=== PATIENT | male | born 1975 | race Caucasian/White ===

== ENCOUNTER 2018-04-05 19:45 | Emergency (ER) | payer SELFPAY ==
[~2018-04-05] VITALS: Ht 182.9 cm; Wt 195.0 kg
[~2018-04-05 19:45] MED LIST: CYCL10TA2 PO; HYDR-2761 PO; IBUP-1060 PO; IBUP200T77 PO; LIDO700A39 TD; OXYC1TAB15 PO; TIZA4CAP3 PO
[2018-04-05 20:57] LABS: BASO # 0.1 x10^3/uL (0.0-0.2); BASO % 1 % (0-3); EOS # 0.2 x10^3/uL (0.0-0.7); EOS % 2 % (0-3); HEMATOCRIT 45.7 % (39.0-53.0); HEMOGLOBIN 15.3 g/dL (13.0-17.5); LYMPH % 20 % (24-48); MEAN CORPUSCULAR HEMOGLOBIN 28 pg (25-35); MEAN CORPUSCULAR HGB CONC 34 g/dL (31-37); MEAN CORPUSCULAR VOLUME 82 fL (79-100); MONO # 0.5 x10^3/uL (0.0-1.1); MONO % 5 % (0-9); NEUT # 7.3 x10^3uL (1.8-7.7); NEUT % 73 % (31-73); PLATELET COUNT 376 x10^3/uL (140-400); RED BLOOD COUNT 5.56 x10^6/uL (4.30-5.70); RED CELL DISTRIBUTION WIDTH 14.6 % (11.5-14.5); WHITE BLOOD COUNT 10.1 x10^3/uL (4.0-11.0)
[2018-04-05 21:06] LABS: CALCIUM 10.1 mg/dL (8.5-10.1); CREATININE 0.9 mg/dL (0.7-1.3); GFR 91.7; POTASSIUM 3.6 mmol/L (3.5-5.1)
--- NOTE | 2018-04-05 21:12 | PHYS DOC ---
Past Medical History Past Medical History: Arthritis, High Cholesterol, Seizure, Other Additional Past Medical Histor: BLOOD CLOT,Carpal Tunnel,CHRONIC BACK PAIN,PE'S Past Surgical History: Cholecystectomy, Other Additional Past Surgical Histo: MOUTH SURGERY,HERNIA REPAIR Alcohol Use: None Drug Use: None Adult General Chief Complaint Chief Complaint: SHORTNESS OF BREATH HPI HPI 42-year-old male presents to ER for complaints of right lower extremity pain and swelling. Patient also reports he has had shortness of air for the past couple of days which has been gradually worsening. Patient denies chest pain or tightness. Patient reports he felt like he had a fever but denies checking his temperature yesterday. Patient reports 2 months ago he had slipped while running down a hill causing him to strain his right knee. Patient reports since onset of increased swelling, knee pain, and shortness of air he had concerns as he has had previous PE approximately 4 years ago. Patient denies being daily smoker, recent travel, or hormonal therapy. Review of Systems Review of Systems Constitutional: Reports chills and felt feverish Eyes: Denies change in visual acuity, redness, or eye pain [] HENT: Denies nasal congestion or sore throat [] Respiratory: Denies cough. Reports SOA which increases with exertion Cardiovascular: Denies CP/tightness GI: Denies abdominal pain, nausea, vomiting, bloody stools or diarrhea [] : Denies dysuria or hematuria [] Musculoskeletal: Denies back pain. Reports rt knee into rt calf pain with swelling in rt calf/lower leg Integument: Denies rash or skin lesions [] Neurologic: Denies headache, focal weakness or sensory changes [] Endocrine: Denies polyuria or polydipsia [] All other systems were reviewed and found to be within normal limits, except as documented in this note. Current Medications Current Medications Current Medications Medications (Trade) Dose Ordered Sig/Brii Start Time Stop Time Status Last Admin Dose Admin Acetaminophen/ Hydrocodone Bitart (Lortab 5/325) 1 tab 1X ONCE 04/05/18 23:00 04/05/18 23:03 DC 04/05/18 23:12 1 TAB Ibuprofen (Motrin) 600 mg 1X ONCE 04/05/18 23:30 04/05/18 23:31 UNV Info (CONTRAST GIVEN -- Rx MONITORING) 1 each PRN DAILY PRN 1/23/19 21:15 04/07/18 21:14 Iohexol (Omnipaque 350 Mg/ml) 100 ml 1X ONCE 04/05/18 21:15 04/05/18 21:16 DC 04/05/18 21:45 100 ML Allergies Allergies Allergies Coded Allergies Type Severity Reaction Last Updated Verified phenobarbital Allergy Intermediate SEIZURE 02/19/16 Yes Physical Exam Physical Exam Constitutional: Well developed, well nourished, no acute distress, non-toxic appearance. [] HENT: Normocephalic, atraumatic, oropharynx moist, nose normal. [] Eyes: Pupils equal, conjunctiva normal, no discharge. [] Neck: Normal range of motion, no tenderness, supple, no stridor. [] Cardiovascular: Heart rate regular rhythm, no murmur [] Lungs & Thorax: Bilateral breath sounds clear to auscultation- diminished in bases. Resp. equal/nonlabored Skin: Warm, dry, no erythema, no rash. [] Back: No tenderness, full ROM Extremities: Tender to palp. rt anterior/posterior knee with no swelling/ ecchymosis or palp. deformity, rt calf > lt calf and is tender on palp. No skin discoloration in bilat. LEs, 2+ posterior tibial/dorsalis pedis, no cyanosis, no clubbing, ROM intact, no edema. [] Neurologic: Alert and oriented X 3, normal motor function, normal sensory function, no focal deficits noted. [] Psychologic: Affect normal, judgement normal, mood normal. [] Current Patient Data Vital Signs Vital Signs Date Time Temp Pulse Resp B/P (MAP) Pulse Ox O2 Delivery O2 Flow Rate FiO2 04/05/18 20:30 84 24 160/87 (111) 95 Room Air 04/05/18 19:55 98.6 98.6 Lab Values Laboratory Tests Test 04/05/18 20:05 White Blood Count 10.1 x10^3/uL (4.0-11.0) Red Blood Count 5.56 x10^6/uL (4.30-5.70) Hemoglobin 15.3 g/dL (13.0-17.5) Hematocrit 45.7 % (39.0-53.0) Mean Corpuscular Volume 82 fL (79-100) Mean Corpuscular Hemoglobin 28 pg (25-35) Mean Corpuscular Hemoglobin Concent 34 g/dL (31-37) Red Cell Distribution Width 14.6 % (11.5-14.5) H Platelet Count 376 x10^3/uL (140-400) Neutrophils (%) (Auto) 73 % (31-73) Lymphocytes (%) (Auto) 20 % (24-48) L Monocytes (%) (Auto) 5 % (0-9) Eosinophils (%) (Auto) 2 % (0-3) Basophils (%) (Auto) 1 % (0-3) Neutrophils # (Auto) 7.3 x10^3uL (1.8-7.7) Lymphocytes # (Auto) 2.0 x10^3/uL (1.0-4.8) Monocytes # (Auto) 0.5 x10^3/uL (0.0-1.1) Eosinophils # (Auto) 0.2 x10^3/uL (0.0-0.7) Basophils # (Auto) 0.1 x10^3/uL (0.0-0.2) D-Dimer (Dali) 0.62 ug/mlFEU (0.00-0.50) H Sodium Level 140 mmol/L (136-145) Potassium Level 3.6 mmol/L (3.5-5.1) Chloride Level 98 mmol/L (98-107) Carbon Dioxide Level 33 mmol/L (21-32) H Anion Gap 9 (6-14) Blood Urea Nitrogen 12 mg/dL (8-26) Creatinine 0.9 mg/dL (0.7-1.3) Estimated GFR (Cockcroft-Gault) 91.7 BUN/Creatinine Ratio 13 (6-20) Glucose Level 119 mg/dL (70-99) H Calcium Level 10.1 mg/dL (8.5-10.1) Total Bilirubin 0.6 mg/dL (0.2-1.0) Aspartate Amino Transferase (AST) 21 U/L (15-37) Alanine Aminotransferase (ALT) 29 U/L (16-63) Alkaline Phosphatase 127 U/L (46-116) H Troponin I Quantitative < 0.017 ng/mL (0.000-0.055) ND-Vvi-U-Type Natriuretic Peptide 8 pg/mL (0-124) Total Protein 8.3 g/dL (6.4-8.2) H Albumin 3.5 g/dL (3.4-5.0) Albumin/Globulin Ratio 0.7 (1.0-1.7) L Laboratory Tests 04/05/18 20:05 Laboratory Tests 04/05/18 20:05 EKG EKG EKG obtained 04/05/18 at [address] Barfield Sinus rhythm Incomplete Rt BBB Rate 85 No STEMI Radiology/Procedures Radiology/Procedures PROCEDURE: CT ANGIOGRAPHY CHEST Examination: CT ANGIOGRAPHY CHEST History: soa; hx pe; Omni 350, 100ml; pt 430lbs Comparison/Correlation: None Findings: Axial images of chest were obtained following IV contrast according to pulmonary arteriography protocol. Exam is limited due to respiratory motion, patient body habitus and suboptimal opacification of the pulmonary arterial vasculature. This exam is nondiagnostic for pulmonary arterial thromboembolic disease and other arteriovascular evaluation. Thoracic aortic morphology is grossly unremarkable. No enlarged thoracic lymph nodes. No infiltrates or pleural effusion. No pericardial effusion. Cholecystectomy noted. Impression: Nondiagnostic exam for pulmonary arterial thromboembolic disease evaluation. No infiltrate. Electronically signed by: Martín Rodriguez MD (04/05/2018 10:19 PM) [facility] DICTATED and SIGNED BY: MARTÍN RODRIGUEZ MD DATE: 04/05/182212 PROCEDURE: VENOUS LOWER EXTREMITY RIGHT Examination: VENOUS LOWER EXTREMITY RIGHT History: RT LEG PAIN AFTER INJURY, SOA, HX OF PE, MORBID OBESITY

NO EVIDENCE OF DVT Comparison/Correlation: None Findings: Right lower extremity venous duplex ultrasound exam was performed. Color Doppler, spectral Doppler, and grayscale imaging performed. The right common femoral vein, superficial femoral vein, popliteal vein, posterior tibial vein, greater saphenous, and peroneal veins are unremarkable. No thrombus identified. Normal compressibility and phasicity. Impression: No right lower extremity DVT. Electronically signed by: Martín Rodriguez MD (04/05/2018 10:13 PM) [facility] DICTATED and SIGNED BY: MARTÍN RODRIGUEZ MD DATE: 04/05/182210 Course & Med Decision Making Course & Med Decision Making Pertinent Labs and Imaging studies reviewed. (See chart for details) 2310: Test results were discussed with patient and his . CTA chest was negative for infiltrate or effusions. Report noted that CT was "Nondiagnostic exam for pulmonary arterial thromboembolic disease evaluation". This was discussed with patient and his as a d-dimer had been added to patient's lab tests and came back elevated at 0.62. With patient's previous PE history and nondiagnostic exam was CT discussed need for VQ scan to further rule out PE. Patient is agreeable with this plan. Other labs were unremarkable. EKG with no acute ST elevation or STEMI and troponin was normal limits at <0.017. At this time patient is sitting up in chair at bedside in no visible distress with equal nonlabored respirations. Patient is denying shortness of air or chest pain at this time. Discussed prolonged ER stay due to V/Q order and both patient and his are agreeable with this plan. Right knee x-ray was reviewed by Dr. Barfield with no obvious displaced fractures or dislocation-this was discussed with patient and his with radiology read pending. Discussed plans for Kvng wrap to be applied to right knee and patient to have follow-up with orthopedic doctor for further care and reevaluation if symptoms persist. Patient has had increased pain of right knee pain following imaging an ultrasound so dose of ibuprofen and [place] will be provided while V/Q is pending. He remains neuro and vascular intact in bilateral lower extremities. Pt's case and plan of care was discussed with Dr. Barfield who will assume care for pending VQ and disposition. Dragon Disclaimer Dragon Disclaimer This electronic medical record was generated, in whole or in part, using a voice recognition dictation system. Departure Departure Referrals: UNKNOWN PCP NAME (PCP) FORTINO BIRD APRN Apr 05, 2018 21:12
[2018-04-05 21:13] LABS: ALBUMIN 3.5 g/dL (3.4-5.0); ALBUMIN/GLOBULIN RATIO 0.7 (1.0-1.7); TOTAL BILIRUBIN 0.6 mg/dL (0.2-1.0); TOTAL PROTEIN 8.3 g/dL (6.4-8.2)
[2018-04-05] MEDS ORDERED: CONTRAST GIVEN. MC PRN (21:15)
[2018-04-05] MEDS ORDERED: IOHEXOL 350 MG/ML 100 ML VIAL. IV ONE (21:15)
--- NOTE | 2018-04-05 22:17 | RAD ---
Examination: VENOUS LOWER EXTREMITY RIGHT History: RT LEG PAIN AFTER INJURY, SOA, HX OF PE, MORBID OBESITY

NO EVIDENCE OF DVT Comparison/Correlation: None Findings: Right lower extremity venous duplex ultrasound exam was performed. Color Doppler, spectral Doppler, and grayscale imaging performed. The right common femoral vein, superficial femoral vein, popliteal vein, posterior tibial vein, greater saphenous, and peroneal veins are unremarkable. No thrombus identified. Normal compressibility and phasicity. Impression: No right lower extremity DVT. Electronically signed by: Martín Flannery MD (04/05/2018 10:13 PM) [facility]
--- NOTE | 2018-04-05 22:24 | RAD ---
Examination: CT ANGIOGRAPHY CHEST History: soa; hx pe; Omni 350, 100ml; pt 430lbs Comparison/Correlation: None Findings: Axial images of chest were obtained following IV contrast according to pulmonary arteriography protocol. Exam is limited due to respiratory motion, patient body habitus and suboptimal opacification of the pulmonary arterial vasculature. This exam is nondiagnostic for pulmonary arterial thromboembolic disease and other arteriovascular evaluation. Thoracic aortic morphology is grossly unremarkable. No enlarged thoracic lymph nodes. No infiltrates or pleural effusion. No pericardial effusion. Cholecystectomy noted. Impression: Nondiagnostic exam for pulmonary arterial thromboembolic disease evaluation. No infiltrate. Electronically signed by: Martín Flannery MD (04/05/2018 10:19 PM) [facility]
[2018-04-05] MEDS ORDERED: HYDROcodone/APAP 5/325MG 1 TAB TABLET PO ONE (23:00)
[2018-04-05] MEDS ORDERED: IBUPROFEN 600 MG TABLET. PO ONE (23:45)
--- NOTE | 2018-04-06 00:19 | RAD ---
Examination: KNEE RIGHT 3V History: Injury, twisted and fell while working out Comparison/Correlation: None Findings: 3 images of the right knee were obtained. Joint spaces are unremarkable. Mild spurring with patella. Mild patellofemoral compartment degenerative change suggested. Small joint effusion present. No acute fracture or bony destruction. Impression: No acute process. No significant degenerative change for the patient's age. Electronically signed by: Martín Flannery MD (04/06/2018 12:14 AM) [facility]
--- NOTE | 2018-04-06 01:35 | RAD ---
Examination: Perfusion scan of the lungs HISTORY: History of shortness of breath for one week COMPARISON: None available. Only 4 views of the perfusion images of the lung were performed after administration of 5 mCi of technetium 99m MAA. FINDINGS: Examination is very limited due to patient body habitus as the camera could not rotate around the patient due to patient body habitus. Grossly no obvious segmental perfusion defect visualized. IMPRESSION: No obvious segmental perfusion defect visualized to suggest pulmonary embolism however examination is very limited due to patient body habitus. Electronically signed by: Aneesh Mack MD (04/06/2018 1:31 AM) [facility]
[2018-04-06 02:00] VITALS: BP 139/81
[2018-04-06] MEDS ORDERED: HYDR-3164 PO (02:00)
--- NOTE | 2018-04-06 06:23 | EKG ---
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
== END 2018-04-06 02:08 | disposition home or self-care (01) ==
LOC: ER 19:45
DX: M79.604 Pain in right leg (principal); R06.02 Shortness of breath; R22.41 Localized swelling, mass and lump, right lower limb; M19.90 Unspecified osteoarthritis, unspecified site; E78.00 Pure hypercholesterolemia, unspecified; G89.29 Other chronic pain; M54.89 Other dorsalgia; Z90.49 Acquired absence of other specified parts of digestive tract; Z86.711 Personal history of pulmonary embolism; Z88.8 Allergy status to other drugs, medicaments and biological substances
CPT/HCPCS: 36415; 71275; 73562; 78582; 80053; 83880; 84484; 85025; 85379; 93005; 93971; 99284; A9540; A9558; Q9967; 96374

== ENCOUNTER 2018-06-13 22:31 | Inpatient (IN) | payer SELFPAY ==
[~2018-06-13] VITALS: Ht 182.9 cm; Wt 217.8 kg
[~2018-06-13 22:31] MED LIST changes: +HYDR-3164 PO
--- NOTE | 2018-06-13 23:34 | PHYS DOC ---
Past Medical History Past Medical History: Arthritis, High Cholesterol, Seizure, Other Additional Past Medical Histor: BLOOD CLOT,Carpal Tunnel,CHRONIC BACK PAIN,PE'S Past Surgical History: Cholecystectomy, Other Additional Past Surgical Histo: MOUTH SURGERY,HERNIA REPAIR Smoking: Quit Greater Than 1 Year Alcohol Use: None Drug Use: None Adult General Chief Complaint Chief Complaint: SHORTNESS OF BREATH HPI HPI Patient is a 43 year old male who presents with shortness of breath for the past five days. Patient states that he has been ill with a cough slightly productive of green sputum for the past two weeks. Patient states that the shortness of breath has been getting progressively worse. Patient states that the shortness of breath is worse on exertion and with coughing. Patient reports relief when sitting down and relaxing. Patient states that he checked his oxygen saturation with a pulse oximetry today and he was averaging in the low 80s prompting him to come to the ED for an evaluation. Patient does have a history of five multi-bilateral pulmonary emboli about 5 years ago. Patient states that his current symptoms feel different than the symptoms he experienced with his prior pulmonary emboli. Review of Systems Review of Systems Constitutional: Denies fever or chills. Eyes: Denies change in visual acuity, or eye pain. HENT: Denies nasal congestion or sore throat. Respiratory: Reports cough and shortness of breath. Cardiovascular: Denies chest pain or palpitations. GI: Reports epigastric pain and diarrhea 5 days ago. : Denies dysuria or hematuria . Musculoskeletal: Denies back pain or joint pain. Integument: Denies rash or skin lesions. Neurologic: Denies focal weakness or sensory changes. Complete systems were reviewed and found to be within normal limits, except as documented in this note. Current Medications Current Medications Current Medications Medications (Trade) Dose Ordered Sig/Brii Start Time Stop Time Status Last Admin Dose Admin Albuterol/ Ipratropium (Duoneb) 3 ml 1X ONCE 06/13/18 23:45 06/13/18 23:46 DC 06/13/18 23:36 3 ML Enoxaparin Sodium (Lovenox 100mg Syringe) 200 mg 1X ONCE 06/14/18 02:30 06/14/18 02:31 DC 06/14/18 02:54 200 MG Info (CONTRAST GIVEN -- Rx MONITORING) 1 each PRN DAILY PRN 06/14/18 01:00 06/16/18 00:59 Iohexol (Omnipaque 350 Mg/ml) 100 ml 1X ONCE 06/14/18 01:30 06/14/18 01:31 DC 06/14/18 01:11 100 ML Sodium Chloride 1,000 ml @ 1,000 mls/hr 1X ONCE 06/13/18 23:45 06/14/18 00:44 DC 06/13/18 23:55 1,000 MLS/HR Allergies Allergies Allergies Coded Allergies Type Severity Reaction Last Updated Verified phenobarbital Allergy Intermediate SEIZURE 02/19/16 Yes Physical Exam Physical Exam Constitutional: Well developed, well nourished, non-toxic appearance. HENT: Normocephalic, atraumatic, oropharynx moist. No pharyngeal erythema or exudate. Eyes: PERRL, conjunctiva without erythema. Neck: Normal range of motion, no tenderness, supple. Cardiovascular:Heart rate regular rhythm, no murmur. Lungs & Thorax: Diffuse scattered wheezes. Nasal cannula in place. Abdomen: Obese. Soft, no tenderness on palpation. Skin: Warm, dry, no rash. Back: No tenderness, no CVA tenderness. Extremities: No tenderness, ROM intact. Neurologic: Alert and oriented X 3, normal motor function, normal sensory function, no focal deficits noted. Psychologic: Affect normal. Speech normal. Current Patient Data Vital Signs Vital Signs Date Time Temp Pulse Resp B/P (MAP) Pulse Ox O2 Delivery O2 Flow Rate FiO2 06/14/18 00:52 85 22 127/71 (89) 97 06/13/18 23:36 Nasal Cannula 2.5 06/13/18 22:40 98.1 98.1 Lab Values Laboratory Tests Test 06/13/18 23:52 White Blood Count 10.2 x10^3/uL (4.0-11.0) Red Blood Count 5.33 x10^6/uL (4.30-5.70) Hemoglobin 14.7 g/dL (13.0-17.5) Hematocrit 43.7 % (39.0-53.0) Mean Corpuscular Volume 82 fL (79-100) Mean Corpuscular Hemoglobin 28 pg (25-35) Mean Corpuscular Hemoglobin Concent 34 g/dL (31-37) Red Cell Distribution Width 15.6 % (11.5-14.5) H Platelet Count 284 x10^3/uL (140-400) Neutrophils (%) (Auto) 68 % (31-73) Lymphocytes (%) (Auto) 23 % (24-48) L Monocytes (%) (Auto) 6 % (0-9) Eosinophils (%) (Auto) 2 % (0-3) Basophils (%) (Auto) 1 % (0-3) Neutrophils # (Auto) 6.9 x10^3uL (1.8-7.7) Lymphocytes # (Auto) 2.4 x10^3/uL (1.0-4.8) Monocytes # (Auto) 0.6 x10^3/uL (0.0-1.1) Eosinophils # (Auto) 0.2 x10^3/uL (0.0-0.7) Basophils # (Auto) 0.1 x10^3/uL (0.0-0.2) D-Dimer (Dali) 1.99 ug/mlFEU (0.00-0.50) H Sodium Level 141 mmol/L (136-145) Potassium Level 3.8 mmol/L (3.5-5.1) Chloride Level 100 mmol/L (98-107) Carbon Dioxide Level 28 mmol/L (21-32) Anion Gap 13 (6-14) Blood Urea Nitrogen 12 mg/dL (8-26) Creatinine 1.1 mg/dL (0.7-1.3) Estimated GFR (Cockcroft-Gault) 72.4 BUN/Creatinine Ratio 11 (6-20) Glucose Level 126 mg/dL (70-99) H Calcium Level 9.0 mg/dL (8.5-10.1) Magnesium Level 2.0 mg/dL (1.8-2.4) Total Bilirubin 0.5 mg/dL (0.2-1.0) Aspartate Amino Transferase (AST) 22 U/L (15-37) Alanine Aminotransferase (ALT) 29 U/L (16-63) Alkaline Phosphatase 113 U/L (46-116) Creatine Kinase 120 U/L (39-308) Creatine Kinase MB (Mass) < 0.5 ng/mL (0.0-3.6) Creatine Kinase MB Relative Index % (0-4) Troponin I Quantitative < 0.017 ng/mL (0.000-0.055) BI-Wsc-W-Type Natriuretic Peptide 53 pg/mL (0-124) Total Protein 7.5 g/dL (6.4-8.2) Albumin 3.1 g/dL (3.4-5.0) L Albumin/Globulin Ratio 0.7 (1.0-1.7) L Influenza Type A Antigen Negative (NEGATIVE) Influenza Type B Antigen Negative (NEGATIVE) Laboratory Tests 06/13/18 23:52 Laboratory Tests 06/13/18 23:52 EKG EKG @2344 NSR at 91bpm, NO ST elevation Radiology/Procedures Radiology/Procedures PROCEDURE: CT ANGIOGRAPHY CHEST CTA Chest with contrast: Clinical History: sob, low sats; Omni 350, 100ml Shortness of breath. Axial helical images of the chest were obtained after the administration of 100 cc of IV Omni 300 and timed appropriately for a pulmonary arterial study. Conventional axial reconstruction was performed in addition to coronal, sagittal and bilateral oblique MIP (maximum intensity projection). This study was ordered to detect possible pulmonary embolism. There is filling defects within the distal right main pulmonary artery is interdigitating into all of the segmental and multiple subsegmental pulmonary arteries on the right. There is thrombus and multiple segmental and subsegmental pulmonary arteries on the left. The more peripheral subsegmental pulmonary arteries are not well opacified limiting our sensitivity for small peripheral pulmonary emboli. The lungs and pleural margins are clear. There is no mediastinal or hilar lymphadenopathy. The thoracic aorta appears normal. Impression: 1. Multiple bilateral pulmonary emboli. 2. Moderate clot burden. PQRS Compliance Statement: One or more of the following individualized dose reduction techniques were utilized for this examination: 1. Automated exposure control 2. Adjustment of the mA and/or kV according to patient size 3. Use of iterative reconstruction technique Electronically signed by: Devin Carmona III, MD (06/14/2018 1:34 AM) [facility] Course & Med Decision Making Course & Med Decision Making Pertinent Labs and Imaging studies reviewed. (See chart for details) Patient is a 43 year old male who presents for evaluation of shortness of breath. Patient placed on 2L supplemental O2 via nasal cannula and pulse oximetry noted to be 96%. Patient treated with Duoneb with improvement. Due to history of multiple pulmonary embolism's D-dimer ordered. Dragon Disclaimer Dragon Disclaimer This electronic medical record was generated, in whole or in part, using a voice recognition dictation system. Departure Departure Impression: Primary Impression: Bilateral pulmonary embolism Additional Impression: Hypoxia Disposition: 09 ADMITTED INPATIENT Admitting Physician: Other (Lana) Condition: GUARDED Referrals: UNKNOWN PCP NAME (PCP) Critical Care Time Critical care time was 30 minutes which includes time at bedside, spent in discussion of patient's care with specialists and/or family members, with interpretation of laboratory and/or radiological studies and is exclusive of procedures. Problem Qualifiers ERICKA HOUSER DO Jun 13, 2018 23:34
[2018-06-13] MEDS ORDERED: IV NORMAL SALINE 1000ML BAG 1,000 ML IV ONE (23:45)
[2018-06-13] MEDS ORDERED: IPRATRPIUM/ALBUTEROL 0.5/2.5MG 3 ML NEBU. NEB ONE (23:45)
[2018-06-14 00:10] LABS: BASO # 0.1 x10^3/uL (0.0-0.2); BASO % 1 % (0-3); EOS # 0.2 x10^3/uL (0.0-0.7); EOS % 2 % (0-3); HEMATOCRIT 43.7 % (39.0-53.0); HEMOGLOBIN 14.7 g/dL (13.0-17.5); LYMPH # 2.4 x10^3/uL (1.0-4.8); LYMPH % 23 % (24-48); MEAN CORPUSCULAR HEMOGLOBIN 28 pg (25-35); MEAN CORPUSCULAR HGB CONC 34 g/dL (31-37); MEAN CORPUSCULAR VOLUME 82 fL (79-100); MONO # 0.6 x10^3/uL (0.0-1.1); MONO % 6 % (0-9); NEUT # 6.9 x10^3uL (1.8-7.7); NEUT % 68 % (31-73); PLATELET COUNT 284 x10^3/uL (140-400); RED BLOOD COUNT 5.33 x10^6/uL (4.30-5.70); RED CELL DISTRIBUTION WIDTH 15.6 % (11.5-14.5); WHITE BLOOD COUNT 10.2 x10^3/uL (4.0-11.0)
[2018-06-14 00:13] LABS: CREATININE 1.1 mg/dL (0.7-1.3); GFR 72.4; POTASSIUM 3.8 mmol/L (3.5-5.1)
[2018-06-14 00:19] LABS: ALBUMIN 3.1 g/dL (3.4-5.0); ALBUMIN/GLOBULIN RATIO 0.7 (1.0-1.7); TOTAL BILIRUBIN 0.5 mg/dL (0.2-1.0); TOTAL PROTEIN 7.5 g/dL (6.4-8.2)
[2018-06-14 00:26] LABS: INFLUENZA A PATIENT NEGATIVE (NEGATIVE); INFLUENZA B PATIENT NEGATIVE (NEGATIVE)
[2018-06-14 00:36] LABS: CREATINE KINASE 120 U/L (39-308)
[2018-06-14] MEDS ORDERED: CONTRAST GIVEN. MC PRN (01:00)
[2018-06-14] MEDS ORDERED: IOHEXOL 350 MG/ML 100 ML VIAL. IV ONE (01:30)
--- NOTE | 2018-06-14 01:37 | RAD ---
CTA Chest with contrast: Clinical History: sob, low sats; Omni 350, 100ml Shortness of breath. Axial helical images of the chest were obtained after the administration of 100 cc of IV Omni 300 and timed appropriately for a pulmonary arterial study. Conventional axial reconstruction was performed in addition to coronal, sagittal and bilateral oblique MIP (maximum intensity projection). This study was ordered to detect possible pulmonary embolism. There is filling defects within the distal right main pulmonary artery is interdigitating into all of the segmental and multiple subsegmental pulmonary arteries on the right. There is thrombus and multiple segmental and subsegmental pulmonary arteries on the left. The more peripheral subsegmental pulmonary arteries are not well opacified limiting our sensitivity for small peripheral pulmonary emboli. The lungs and pleural margins are clear. There is no mediastinal or hilar lymphadenopathy. The thoracic aorta appears normal. Impression: 1. Multiple bilateral pulmonary emboli. 2. Moderate clot burden. PQRS Compliance Statement: One or more of the following individualized dose reduction techniques were utilized for this examination: 1. Automated exposure control 2. Adjustment of the mA and/or kV according to patient size 3. Use of iterative reconstruction technique Electronically signed by: Devni Carmona III, MD (06/14/2018 1:34 AM) [facility]
[2018-06-14] MEDS ORDERED: ONDANSETRON PF 4 MG/2 ML VIAL. IV PRN (02:45)
[2018-06-14] MEDS ORDERED: fentaNYL PF VIAL 100 MCG/2 ML VIAL IV PRN (02:45)
[2018-06-14 04:20] VITALS: BP 154/81
[2018-06-14 07:00] VITALS: BP 138/75
--- NOTE | 2018-06-14 07:51 | EKG ---
[facility] [address] [place] [address] Test Date: 2018-06-13 Test Time: 23:44:00 Pat Name: SAFIA PHILLIPS Department: Room: 209 1 Gender: M Director Of Vital Statistics: : 1975 Requested By: ERICKA HOUSER Order Number: [id number] Reading MD: Adrien Lacy MD Measurements Intervals Mcdonald Rate: 90 P: 23 ID: [id number] QRS: 20 QRSD: 94 T: 47 QT: 382 QTc: 471 Interpretive Statements SINUS RHYTHM NON-SPECIFIC ST/T CHANGES Electronically Signed On 06-15-2018 9:34:25 CDT by Adrien Lacy MD
[2018-06-14 11:00] VITALS: BP 135/76
[2018-06-14] MEDS ORDERED: PERFLUTREN PROTEIN-A MICROSPHR 0.22 MG/ML 3 ML VIAL. IV ONE (12:19)
[2018-06-14] MEDS ORDERED: PERFLUTREN PROTEIN-A MICROSPHR 0.22 MG/ML 3 ML VIAL. IV PRN (12:30)
--- NOTE | 2018-06-14 13:03 | NUR ---
SS following for discharge planning. SS reviewed pt chart. Pt is self pay. Pt is from home with spouse and is currently requiring oxygen. No discharge needs noted at this time. SS will continue to follow for pending discharge needs. [facility] to follow for self pay status.
[2018-06-14] MEDS ORDERED: HEPARIN for IV BOLUS 10,000 UNIT/10 ML VIAL. IV PRN (14:00)
--- NOTE | 2018-06-14 14:32 | CARD ---
MR#: [id number] Date of Study: 06/14/2018 Ordering Physician: LOCO OCONNOR, Referring Physician: LOCO OCONNOR Tech: Amy Dior OTIS APPROVED REPORT EXAM: Two-dimensional and M-mode echocardiogram with Doppler, color Doppler with contrast. Other Information Quality : PoorHR: 83bpm Rhythm : Other INDICATION PE Echo Enhancing Agent Indication: Endocardial border delineation Agent/Amount Used: Optison 1mL RISK FACTORS Obesity 2D DIMENSIONS RVDd3.7 (2.9-3.5cm)Left Atrium(2D)3.2 (1.6-4.0cm) IVSd1.1 (0.7-1.1cm)Aortic Root(2D)3.6 (2.0-3.7cm) LVDd6.3 (3.9-5.9cm)LVOT Diameter2.8 (1.8-2.4cm) PWd1.1 (0.7-1.1cm)LVDs4.4 (2.5-4.0cm) FS (%) 30.8 %SV117.4 ml LVEF(%)57.3 (>50%) Mitral Valve MV E Xnvefngt05.2cm/sMV E Peak Gr.3mmHg MV DECEL [id number] A Jyuaoxfe85.6cm/s MV E Mean Gr.2mmHgE/A Ratio0.8 MV A [id number] Tricuspid Valve TR P. Vdjgdggm097nn/sRAP [id number] TR Peak Gr.[id number] LEFT VENTRICLE Technically very difficult study. The left ventricle is normal size. There is normal left ventricular wall thickness. The left ventricular systolic function is normal and the ejection fraction is within normal range. Left ventricular ejection fraction is estimated at 50-55%. There is normal LV segmenta l wall motion. Transmitral Doppler flow pattern is abnormal. RIGHT VENTRICLE The right ventricle is mildly dilated. Cannot assess right ventricular thickness. Cannot assess right ventricular systolic function. ATRIA The left atrium size is normal. The right atrium size is normal. The interatrial septum is intact wit h no evidence for an atrial septal defect or patent foramen ovale as noted on 2-D or Doppler imaging. AORTIC VALVE The aortic valve is not well visualized. MITRAL VALVE The mitral valve is normal in structure and function. There is no evidence of mitral valve prolapse. There is no mitral valve stenosis. Doppler and Color Flow revealed mild mitral valve regurgitation. TRICUSPID VALVE The tricuspid valve is not well visualized. Doppler and color-flow analysis was performed but not kasi ar. With contrast the PA pressure was estimated at 50 mmHg. PULMONIC VALVE The pulmonic valve is not well visualized. GREAT VESSELS The aortic root is normal in size. The ascending aorta is normal in size. The IVC was not visualized. PERICARDIAL EFFUSION There is no evidence of significant pericardial effusion. Critical Notification Critical Value: No <Conclusion> Technically very difficult study. The left ventricle is normal size. The left ventricular systolic function is normal and the ejection fraction is within normal range. Left ventricular ejection fraction is estimated at 50-55%. The right ventricle is mildly dilated. The aortic valve is not well visualized. Doppler and Color Flow revealed mild mitral valve regurgitation. Doppler and color-flow analysis of the tricuspid valve -was performed but not clear. With contrast the PA pressure was estimated at 50 mmHg. Signed by : Cristi Elaine MD Electronically Approved : 06/14/2018 14:31:44
[2018-06-14] MEDS: HEPARIN 25,000UTS/500ML PREMIX 500 ML IV PRN (14:34)
[2018-06-14] MEDS: ANTI-COAG MONITOR BY PHARMACY. MC PRN (14:56)
--- NOTE | 2018-06-14 14:57 | NUR ---
Pharmacy Warfarin Dosing Note S:Pharmacy consulted to assist with anticoagulation therapy started 06/14/18 with target INR: 2 -3 O:SAFIA PHILLIPS is a 43 year old M with Bilateral pulmonary embolism LABS: Last INR: 1.1 Last HGB: 14.7 Last HCT: 43.7 Last PLT: 284 Previous Regimen: NA Vitamin K given: N Drug Interaction Changes: Same Interacting Drug A:INR of 1.1 is below desired range. Target range for this patient is: 2 -3 P: Warfarin dose: 10 mg Today at 1600 Bridge Therapy: Heparin Therapeutic CONT Next INR due 06/15/18 Pharmacy anticoagulation service will continue to follow. TEREZA BUTTERFIELD, [facility], 06/14/18 [id number]
[2018-06-14 15:00] VITALS: BP 165/86
[2018-06-14] MEDS ORDERED: WARFARIN 5 MG TABLET. PO ONE (16:00)
--- NOTE | 2018-06-14 18:49 | PDOC1 ---
History and Physical Date of Admission Date of Admission 06/14/2018 Identification/Chief Complaint Chief Complaint I couldnt breath Source Source: Chart review, Patient History of Present Illness History of Present Illness Patient is a 43 year old male with past medical hsitory fo PE in the past who was in his usual state of health until 3 days prior to his admission when he started compalining of shortness of breath more than ususal. the patient denies sick contacts, no chest pain, no palpitations, no recent viral infections nor upper respiratory tract infections. no cough or sputum production was reported. His friend who is a juvenile counselor brought a pulse oxymeter and his level was 78% reason why he decided to come to the ED for evaluation he was fund to have a PE on imaging studies. He is being admitted for treatment. Past Medical History Pulmonary: Pulmonary embolus Past Surgical History Past Surgical History: No pertinent history Family History Family History: High Cholestrol Family History: Parent Social History Smoke: No ALCOHOL: none Drugs: None Current Medications Current Medications Current Medications Medications (Trade) Dose Ordered Sig/Brii Start Time Stop Time Status Last Admin Dose Admin Albuterol/ Ipratropium (Duoneb) 3 ml 1X ONCE 06/13/18 23:45 06/13/18 23:46 DC 06/13/18 23:36 3 ML Enoxaparin Sodium (Lovenox 100mg Syringe) 200 mg 1X ONCE 06/14/18 02:30 06/14/18 02:31 DC 06/14/18 02:54 200 MG Enoxaparin Sodium (Lovenox Per Pharmacy Treatment Dosing) 1 each PRN DAILY PRN 06/14/18 10:15 06/14/18 10:49 DC Fentanyl Citrate (Fentanyl 2ml Vial) 50 mcg PRN Q2HRS PRN 06/14/18 02:45 Heparin Sodium (Porcine) (Heparin Sodium) 3,250 unit PRN Q6HRS PRN 06/14/18 14:00 Heparin Sodium/ Dextrose 500 ml @ 0 mls/hr CONT PRN 06/14/18 14:00 06/14/18 14:34 20 MLS/HR Info (Anti-Coagulation Monitoring By Pharmacy) 1 each PRN DAILY PRN 06/14/18 15:00 06/14/18 14:56 1 EACH Info (CONTRAST GIVEN -- Rx MONITORING) 1 each PRN DAILY PRN 06/14/18 01:00 4/5/19 00:59 Iohexol (Omnipaque 350 Mg/ml) 100 ml 1X ONCE 06/14/18 01:30 06/14/18 01:31 DC 06/14/18 01:11 100 ML Ondansetron HCl (Zofran) 4 mg PRN Q8HRS PRN 06/14/18 02:45 06/15/18 02:44 Perflutren Protein Type A Microsphe (Optison) 0.66 mg STK-MED ONCE 06/14/18 12:19 06/14/18 12:20 DC Sodium Chloride 1,000 ml @ 1,000 mls/hr 1X ONCE 06/13/18 23:45 06/14/18 00:44 DC 06/13/18 23:55 1,000 MLS/HR Warfarin Sodium (Coumadin Per Pharmacy) 1 each PRN DAILY PRN 06/14/18 10:15 06/14/18 14:55 1 EACH Warfarin Sodium (Coumadin) 10 mg 1X WARF ONCE 06/14/18 16:00 06/14/18 16:01 DC 06/14/18 16:58 10 MG Allergies Allergies Allergies Coded Allergies Type Severity Reaction Last Updated Verified phenobarbital Allergy Intermediate SEIZURE 02/19/16 Yes ROS Review of System CONSTITUTIONAL: No fever or chills EYES: No recent changes SKIN: No rash or itching CARDIOVASCULAR: No chest pain, syncope, palpitations, or edema RESPIRATORY: No SOB or cough GASTROINTESTINAL: No nausea, vomiting or abdominal pain NEUROLOGICAL: No headaches or weakness ENDOCRINE: No cold or heat intolerance GENITOURINARY: No urgency or frequency of urination MUSCULOSKELETAL: No back pain or joint pain LYMPHATICS: No enlarged lymph nodes PSYCHIATRIC: No anxiety or depression Physical Exam Physical Exam GEN.: No apparent distress. Alert and oriented. HEENT: Head is normocephalic, atraumatic NECK: Supple. LUNGS: Clear to auscultation. HEART: RRR, S1, S2 present. Peripheral pulses intact ABDOMEN: Soft, nontender. Positive bowel sounds. EXTREMITIES: Without any cyanosis. NEUROLOGIC: Normal speech, normal tone PSYCHIATRIC: Normal affect, normal mood. SKIN: No ulcerations Vitals Vitals Vital Signs Date Time Temp Pulse Resp B/P (MAP) Pulse Ox O2 Delivery O2 Flow Rate FiO2 06/14/18 15:00 97.9 89 20 165/86 (112) 97 Room Air 97.9 06/14/18 08:05 2.0 Labs Labs Laboratory Tests Test 06/13/18 23:52 06/14/18 05:30 06/14/18 08:35 White Blood Count 10.2 x10^3/uL (4.0-11.0) Red Blood Count 5.33 x10^6/uL (4.30-5.70) Hemoglobin 14.7 g/dL (13.0-17.5) Hematocrit 43.7 % (39.0-53.0) Mean Corpuscular Volume 82 fL (79-100) Mean Corpuscular Hemoglobin 28 pg (25-35) Mean Corpuscular Hemoglobin Concent 34 g/dL (31-37) Red Cell Distribution Width 15.6 % (11.5-14.5) Platelet Count 284 x10^3/uL (140-400) Neutrophils (%) (Auto) 68 % (31-73) Lymphocytes (%) (Auto) 23 % (24-48) Monocytes (%) (Auto) 6 % (0-9) Eosinophils (%) (Auto) 2 % (0-3) Basophils (%) (Auto) 1 % (0-3) Neutrophils # (Auto) 6.9 x10^3uL (1.8-7.7) Lymphocytes # (Auto) 2.4 x10^3/uL (1.0-4.8) Monocytes # (Auto) 0.6 x10^3/uL (0.0-1.1) Eosinophils # (Auto) 0.2 x10^3/uL (0.0-0.7) Basophils # (Auto) 0.1 x10^3/uL (0.0-0.2) D-Dimer (Dali) 1.99 ug/mlFEU (0.00-0.50) Sodium Level 141 mmol/L (136-145) Potassium Level 3.8 mmol/L (3.5-5.1) Chloride Level 100 mmol/L (98-107) Carbon Dioxide Level 28 mmol/L (21-32) Anion Gap 13 (6-14) Blood Urea Nitrogen 12 mg/dL (8-26) Creatinine 1.1 mg/dL (0.7-1.3) Estimated GFR (Cockcroft-Gault) 72.4 BUN/Creatinine Ratio 11 (6-20) Glucose Level 126 mg/dL (70-99) Calcium Level 9.0 mg/dL (8.5-10.1) Magnesium Level 2.0 mg/dL (1.8-2.4) Total Bilirubin 0.5 mg/dL (0.2-1.0) Aspartate Amino Transf (AST/SGOT) 22 U/L (15-37) Alanine Aminotransferase (ALT/SGPT) 29 U/L (16-63) Alkaline Phosphatase 113 U/L (46-116) Creatine Kinase 120 U/L (39-308) Creatine Kinase MB (Mass) < 0.5 ng/mL (0.0-3.6) Creatine Kinase MB Relative Index % (0-4) Troponin I Quantitative < 0.017 ng/mL (0.000-0.055) < 0.017 ng/mL (0.000-0.055) < 0.017 ng/mL (0.000-0.055) JD-Aoq-Z-Type Natriuretic Peptide 53 pg/mL (0-124) Total Protein 7.5 g/dL (6.4-8.2) Albumin 3.1 g/dL (3.4-5.0) Albumin/Globulin Ratio 0.7 (1.0-1.7) Influenza Type A Antigen Negative (NEGATIVE) Influenza Type B Antigen Negative (NEGATIVE) Prothrombin Time 14.0 SEC (11.7-14.0) Prothromb Time International Ratio 1.1 (0.8-1.1) Laboratory Tests Test 06/13/18 23:52 06/14/18 05:30 06/14/18 08:35 White Blood Count 10.2 x10^3/uL (4.0-11.0) Red Blood Count 5.33 x10^6/uL (4.30-5.70) Hemoglobin 14.7 g/dL (13.0-17.5) Hematocrit 43.7 % (39.0-53.0) Mean Corpuscular Volume 82 fL (79-100) Mean Corpuscular Hemoglobin 28 pg (25-35) Mean Corpuscular Hemoglobin Concent 34 g/dL (31-37) Red Cell Distribution Width 15.6 % (11.5-14.5) Platelet Count 284 x10^3/uL (140-400) Neutrophils (%) (Auto) 68 % (31-73) Lymphocytes (%) (Auto) 23 % (24-48) Monocytes (%) (Auto) 6 % (0-9) Eosinophils (%) (Auto) 2 % (0-3) Basophils (%) (Auto) 1 % (0-3) Neutrophils # (Auto) 6.9 x10^3uL (1.8-7.7) Lymphocytes # (Auto) 2.4 x10^3/uL (1.0-4.8) Monocytes # (Auto) 0.6 x10^3/uL (0.0-1.1) Eosinophils # (Auto) 0.2 x10^3/uL (0.0-0.7) Basophils # (Auto) 0.1 x10^3/uL (0.0-0.2) D-Dimer (Dali) 1.99 ug/mlFEU (0.00-0.50) Sodium Level 141 mmol/L (136-145) Potassium Level 3.8 mmol/L (3.5-5.1) Chloride Level 100 mmol/L (98-107) Carbon Dioxide Level 28 mmol/L (21-32) Anion Gap 13 (6-14) Blood Urea Nitrogen 12 mg/dL (8-26) Creatinine 1.1 mg/dL (0.7-1.3) Estimated GFR (Cockcroft-Gault) 72.4 BUN/Creatinine Ratio 11 (6-20) Glucose Level 126 mg/dL (70-99) Calcium Level 9.0 mg/dL (8.5-10.1) Magnesium Level 2.0 mg/dL (1.8-2.4) Total Bilirubin 0.5 mg/dL (0.2-1.0) Aspartate Amino Transf (AST/SGOT) 22 U/L (15-37) Alanine Aminotransferase (ALT/SGPT) 29 U/L (16-63) Alkaline Phosphatase 113 U/L (46-116) Creatine Kinase 120 U/L (39-308) Creatine Kinase MB (Mass) < 0.5 ng/mL (0.0-3.6) Creatine Kinase MB Relative Index % (0-4) Troponin I Quantitative < 0.017 ng/mL (0.000-0.055) < 0.017 ng/mL (0.000-0.055) < 0.017 ng/mL (0.000-0.055) XU-Pym-W-Type Natriuretic Peptide 53 pg/mL (0-124) Total Protein 7.5 g/dL (6.4-8.2) Albumin 3.1 g/dL (3.4-5.0) Albumin/Globulin Ratio 0.7 (1.0-1.7) Influenza Type A Antigen Negative (NEGATIVE) Influenza Type B Antigen Negative (NEGATIVE) Prothrombin Time 14.0 SEC (11.7-14.0) Prothromb Time International Ratio 1.1 (0.8-1.1) VTE Prophylaxis Ordered VTE Prophylaxis Devices: No VTE Pharmacological Prophylaxi: Yes Assessment/Plan Assessment/Plan 1. Multiple bilateral pulmonary emboli. 2. Moderate clot burden. 3. Morbid obesity with BMI of 65 Plan: will get ECHO will start Heparin and Warfarin since patient's weight precludes other anticoagulants reassess in the am LOCO OCONNOR MD Jun 14, 2018 18:49
[2018-06-14 19:25] VITALS: BP 164/70
[2018-06-14] MEDS: HEPARIN for IV BOLUS 10,000 UNIT/10 ML VIAL. IV PRN (21:27)
[2018-06-14] MEDS ORDERED: guaiFENesin DM 200MG/20MG 10 ML SYRUP PO PRN (23:00)
[2018-06-14 23:29] VITALS: BP 119/77
[2018-06-15 03:41] VITALS: BP 147/82
[2018-06-15 05:15] LABS: UNFRACTIONATED HEPARIN TESTING 0.12 IU/mL (0.30-0.70)
[2018-06-15] MEDS: HEPARIN 25,000UTS/500ML PREMIX 500 ML IV PRN ×3 (06:22→18:31)
[2018-06-15 07:00] VITALS: BP 132/74
[2018-06-15 11:00] VITALS: BP 127/74
[2018-06-15] MEDS: HEPARIN for IV BOLUS 10,000 UNIT/10 ML VIAL. IV PRN (13:20)
--- NOTE | 2018-06-15 14:03 | PDOC ---
PROGRESS NOTES Chief Complaint Chief Complaint 1. Multiple bilateral pulmonary emboli. 2. Moderate clot burden. 3. Morbid obesity with BMI of 65 Plan: will get ECHO will start Heparin and Warfarin since patient's weight precludes other anticoagulants reassess in the am History of Present Illness History of Present Illness Patient with no acute events overnight. CONCERNS WERE ADDRESSED THE BEST OF MY ABILITIES PLAN OF CARE EXPLAINING DETAIL REASSURANCE HAS BEEN PROVIDED Vitals Vitals Vital Signs Date Time Temp Pulse Resp B/P (MAP) Pulse Ox O2 Delivery O2 Flow Rate FiO2 06/15/18 11:00 97.5 76 20 127/74 (91) 93 Room Air 97.5 06/15/18 07:35 2.0 Physical Exam Physical Exam Gen.: morbid obese in no apparent distress Head: Normal shape atraumatic Eyes: Pupils equal reactive to light and accommodation, normal conjunctivae and lids Ears: Normal shape Nose: Normal shape no trauma Mouth: No exudates of the back of throat no thrush no lesions Neck: Supple no JVD no carotid bruit or lymphadenopathy no thyromegaly Chest: Lungs clear to auscultation with good inspiratory effort no crackles rales or rhonchi Cardiovascular: S1-S2 regular rhythm no murmurs gallops or rubs Abdomen: Bowel sounds present soft nontender no hepatosplenomegaly appreciated sign Extremities: No clubbing no cyanosis no edema peripheral pulses palpated bilaterally Neurological: Alert awake oriented in person time place and situation, cranial nerves II through XII intact, no motor or sensory deficits appreciated Psych: Appropriate mood, cooperative Labs LABS Laboratory Tests Test 06/14/18 20:45 06/15/18 04:00 06/15/18 12:05 Heparin Anti-Xa Act, Unfractionated 0.22 IU/mL (0.30-0.70) 0.12 IU/mL (0.30-0.70) 0.26 IU/mL (0.30-0.70) Prothrombin Time 14.0 SEC (11.7-14.0) Prothromb Time International Ratio 1.1 (0.8-1.1) Review of Systems Review of Systems pertinent as per hpi otherwise negative. Comment Review of Relevant I have reviewed the following items constantino (where applicable) has been applied. Labs Laboratory Tests Test 06/13/18 23:52 06/14/18 05:30 06/14/18 08:35 06/14/18 20:45 White Blood Count 10.2 x10^3/uL (4.0-11.0) Red Blood Count 5.33 x10^6/uL (4.30-5.70) Hemoglobin 14.7 g/dL (13.0-17.5) Hematocrit 43.7 % (39.0-53.0) Mean Corpuscular Volume 82 fL (79-100) Mean Corpuscular Hemoglobin 28 pg (25-35) Mean Corpuscular Hemoglobin Concent 34 g/dL (31-37) Red Cell Distribution Width 15.6 % (11.5-14.5) Platelet Count 284 x10^3/uL (140-400) Neutrophils (%) (Auto) 68 % (31-73) Lymphocytes (%) (Auto) 23 % (24-48) Monocytes (%) (Auto) 6 % (0-9) Eosinophils (%) (Auto) 2 % (0-3) Basophils (%) (Auto) 1 % (0-3) Neutrophils # (Auto) 6.9 x10^3uL (1.8-7.7) Lymphocytes # (Auto) 2.4 x10^3/uL (1.0-4.8) Monocytes # (Auto) 0.6 x10^3/uL (0.0-1.1) Eosinophils # (Auto) 0.2 x10^3/uL (0.0-0.7) Basophils # (Auto) 0.1 x10^3/uL (0.0-0.2) D-Dimer (Dali) 1.99 ug/mlFEU (0.00-0.50) Sodium Level 141 mmol/L (136-145) Potassium Level 3.8 mmol/L (3.5-5.1) Chloride Level 100 mmol/L (98-107) Carbon Dioxide Level 28 mmol/L (21-32) Anion Gap 13 (6-14) Blood Urea Nitrogen 12 mg/dL (8-26) Creatinine 1.1 mg/dL (0.7-1.3) Estimated GFR (Cockcroft-Gault) 72.4 BUN/Creatinine Ratio 11 (6-20) Glucose Level 126 mg/dL (70-99) Calcium Level 9.0 mg/dL (8.5-10.1) Magnesium Level 2.0 mg/dL (1.8-2.4) Total Bilirubin 0.5 mg/dL (0.2-1.0) Aspartate Amino Transf (AST/SGOT) 22 U/L (15-37) Alanine Aminotransferase (ALT/SGPT) 29 U/L (16-63) Alkaline Phosphatase 113 U/L (46-116) Creatine Kinase 120 U/L (39-308) Creatine Kinase MB (Mass) < 0.5 ng/mL (0.0-3.6) Creatine Kinase MB Relative Index % (0-4) Troponin I Quantitative < 0.017 ng/mL (0.000-0.055) < 0.017 ng/mL (0.000-0.055) < 0.017 ng/mL (0.000-0.055) LT-Ubi-W-Type Natriuretic Peptide 53 pg/mL (0-124) Total Protein 7.5 g/dL (6.4-8.2) Albumin 3.1 g/dL (3.4-5.0) Albumin/Globulin Ratio 0.7 (1.0-1.7) Influenza Type A Antigen Negative (NEGATIVE) Influenza Type B Antigen Negative (NEGATIVE) Prothrombin Time 14.0 SEC (11.7-14.0) Prothromb Time International Ratio 1.1 (0.8-1.1) Heparin Anti-Xa Act, Unfractionated 0.22 IU/mL (0.30-0.70) Test 06/15/18 04:00 06/15/18 12:05 Prothrombin Time 14.0 SEC (11.7-14.0) Prothromb Time International Ratio 1.1 (0.8-1.1) Heparin Anti-Xa Act, Unfractionated 0.12 IU/mL (0.30-0.70) 0.26 IU/mL (0.30-0.70) Laboratory Tests Test 06/14/18 20:45 06/15/18 04:00 06/15/18 12:05 Heparin Anti-Xa Act, Unfractionated 0.22 IU/mL (0.30-0.70) 0.12 IU/mL (0.30-0.70) 0.26 IU/mL (0.30-0.70) Prothrombin Time 14.0 SEC (11.7-14.0) Prothromb Time International Ratio 1.1 (0.8-1.1) Medications Current Medications Albuterol/ Ipratropium (Duoneb) 3 ml 1X ONCE NEB Last administered on at 23:36; Start 06/13/18 at 23:45; Stop 06/13/18 at 23:46; Status DC Sodium Chloride 1,000 ml @ 1,000 mls/hr 1X ONCE IV Last administered on at 23:55; Start 06/13/18 at 23:45; Stop 06/14/18 at 00:44; Status DC Iohexol (Omnipaque 350 Mg/ml) 100 ml 1X ONCE IV Last administered on 06/14/18at 01:11; Start 06/14/18 at 01:30; Stop 06/14/18 at 01:31; Status DC Info (CONTRAST GIVEN -- Rx MONITORING) 1 each PRN DAILY PRN MC SEE COMMENTS; Start 06/14/18 at 01:00; Stop 06/16/18 at 00:59 Enoxaparin Sodium (Lovenox 100mg Syringe) 200 mg 1X ONCE SQ Last administered on 06/14/18at 02:54; Start 06/14/18 at 02:30; Stop 06/14/18 at 02:31; Status DC Ondansetron HCl (Zofran) 4 mg PRN Q8HRS PRN IV NAUSEA/VOMITING 1ST CHOICE; Start 06/14/18 at 02:45; Stop 06/15/18 at 02:44; Status DC Fentanyl Citrate (Fentanyl 2ml Vial) 50 mcg PRN Q2HRS PRN IV SEVERE PAIN; Start 06/14/18 at 02:45 Enoxaparin Sodium (Lovenox Per Pharmacy Treatment Dosing) 1 each PRN DAILY PRN MC SEE COMMENTS; Start 06/14/18 at 10:15; Stop 06/14/18 at 10:49; Status DC Warfarin Sodium (Coumadin Per Pharmacy) 1 each PRN DAILY PRN MC SEE COMMENTS Last administered on 06/14/18at 14:55; Start 06/14/18 at 10:15 Heparin Sodium/ Dextrose 500 ml @ 0 mls/hr CONT PRN IV SEE I/O RECORD Last administered on 06/15/18at 08:34; Start 06/14/18 at 14:00 Heparin Sodium (Porcine) (Heparin Sodium) 6,550 unit PRN Q6HRS PRN IV FOR UFH LEVEL LESS THAN 0.2 Last administered on 06/15/18 06:15; Start 06/14/18 at 14:00 Heparin Sodium (Porcine) (Heparin Sodium) 3,250 unit PRN Q6HRS PRN IV FOR UFH LEVEL 0.2 - 0.29 Last administered on 06/15/18 13:20; Start 06/14/18 at 14:00 Perflutren Protein Type A Microsphe (Optison) 0.66 mg PRN 1X PRN IV SEE COMMENTS Last administered on 06/14/18 12:53; Start 06/14/18 at 12:30; Stop at 12:29; Status DC Perflutren Protein Type A Microsphe (Optison) 0.66 mg STK-MED ONCE IV ; Start at 12:19; Stop 06/14/18 at 12:20; Status DC Info (Anti-Coagulation Monitoring By Pharmacy) 1 each PRN DAILY PRN MC SEE COMMENTS Last administered on 06/14/18at 14:56; Start 06/14/18 at 15:00 Warfarin Sodium (Coumadin) 10 mg 1X WARF ONCE PO Last administered on 16:58; Start 06/14/18 at 16:00; Stop 06/14/18 at 16:01; Status DC Guaifenesin (Robitussin Dm) 10 ml PRN Q6HRS PRN PO COUGH Last administered on at 23:04; Start 06/14/18 at 23:00 Active Scripts Active Vitals/I & O Vital Sign - Last 24 Hours 06/14/18 06/14/18 06/14/18 06/14/18 15:00 19:25 19:45 23:29 Temp 97.9 98.0 98.1 97.9 98.0 98.1 Pulse 89 79 77 Resp 20 17 18 B/P (MAP) 165/86 (112) 164/70 (101) 119/77 (91) Pulse Ox 97 98 97 O2 Delivery Room Air Nasal Cannula Nasal Cannula Nasal Cannula O2 Flow Rate 2.0 2.0 2.0 4/4/19 4/4/19 4/4/19 4/4/19 03:41 07:00 07:35 11:00 Temp 98.0 97.2 97.5 98.0 97.2 97.5 Pulse 79 83 76 Resp 17 20 20 B/P (MAP) 147/82 (103) 132/74 (93) 127/74 (91) Pulse Ox 97 92 93 O2 Delivery Nasal Cannula Nasal Cannula Nasal Cannula Room Air O2 Flow Rate 2.0 2.5 2.0 Intake and Output 06/14/18 06/14/18 06/15/18 15:00 23:00 07:00 Intake Total 650 ml 600 ml Output Total 500 ml Balance 650 ml 100 ml LOCO OCONNOR MD Jun 15, 2018 14:03
[2018-06-15 15:00] VITALS: BP 137/85
[2018-06-15] MEDS: ANTI-COAG MONITOR BY PHARMACY. MC PRN (15:33)
--- NOTE | 2018-06-15 15:38 | NUR ---
Pharmacy Warfarin Dosing Note S: Pharmacy consulted to assist with anticoagulation therapy started 06/14/18 O: SAFIA PHILLIPS is a 43 year old M with Bilateral pulmonary embolism LABS: Last INR: 1.1 Last HGB: 14.7 Last HCT: 43.7 Last PLT: 284 Last dose of 10 mg given on 06/14/18 at 1658 Vitamin K given: N A:INR of 1.1 is below desired range. Target range for this patient is: 2 -3 P: Warfarin dose: 10 mg Today at 1600 Bridge Therapy: Heparin Therapeutic Next INR due TOMORROW Pharmacy anticoagulation service will continue to follow. Genesis Pal RPH, 06/15/18 [id number]
[2018-06-15] MEDS ORDERED: WARFARIN 5 MG TABLET. PO ONE (16:00)
[2018-06-15 19:00] VITALS: BP 150/86
[2018-06-15 22:49] VITALS: BP 138/91
--- NOTE | 2018-06-16 02:24 | NUR ---
Heparin dose Therapeutic no change at this time
[2018-06-16 02:55] VITALS: BP 129/69
[2018-06-16] MEDS: HEPARIN 25,000UTS/500ML PREMIX 500 ML IV PRN ×3 (03:37→20:26)
[2018-06-16 07:15] VITALS: BP 127/70
[2018-06-16 08:14] LABS: HEMATOCRIT 41.9 % (39.0-53.0); HEMOGLOBIN 13.6 g/dL (13.0-17.5); RED BLOOD COUNT 5.07 x10^6/uL (4.30-5.70); RED CELL DISTRIBUTION WIDTH 15.3 % (11.5-14.5); WHITE BLOOD COUNT 7.7 x10^3/uL (4.0-11.0)
--- NOTE | 2018-06-16 08:35 | PDOC ---
PROGRESS NOTES Chief Complaint Chief Complaint 1. Multiple bilateral pulmonary emboli. 2. Moderate clot burden. 3. Morbid obesity with BMI of 65 Plan: will get ECHO will start Heparin and Warfarin since patient's weight precludes other anticoagulants reassess in the am History of Present Illness History of Present Illness Admitted with shortness of breath and hypoxia, found with multiple PE with moderate clot burden. This is his second episode of PE. 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 Off oxygen today, able to ambulate with less shortness of breath. INR 1.7 after 10mg coumadin last night. Echo with some increased right sided pressure and LV dilation. He wishes to leave for a tattoo convention in [place], [place], willing to stay until INR therapeutic. Plan: Will await INR > 1.8, likely tomorrow for d/c on 10mg/7.5mg alternating regimen , most likely He will probably need lifelong anticoagulation Morbid obesity - this precludes NOAC use, needs warfarin, with his moderate clot burden it is safest to continue bridging for 1 additional day CONCERNS WERE ADDRESSED THE BEST OF MY ABILITIES PLAN OF CARE EXPLAINING DETAIL REASSURANCE HAS BEEN PROVIDED Vitals Vitals Vital Signs Date Time Temp Pulse Resp B/P (MAP) Pulse Ox O2 Delivery O2 Flow Rate FiO2 06/16/18 07:15 97.5 67 19 127/70 (89) 95 Nasal Cannula 97.5 Physical Exam Physical Exam Gen.: morbid obese in no apparent distress Head: Normal shape atraumatic Eyes: Pupils equal reactive to light and accommodation, normal conjunctivae and lids Ears: Normal shape Nose: Normal shape no trauma Mouth: No exudates of the back of throat no thrush no lesions Neck: Supple no JVD no carotid bruit or lymphadenopathy no thyromegaly Chest: Lungs clear to auscultation with good inspiratory effort no crackles rales or rhonchi Cardiovascular: S1-S2 regular rhythm no murmurs gallops or rubs Abdomen: Bowel sounds present soft nontender no hepatosplenomegaly appreciated sign Extremities: No clubbing no cyanosis no edema peripheral pulses palpated bilaterally Neurological: Alert awake oriented in person time place and situation, cranial nerves II through XII intact, no motor or sensory deficits appreciated Psych: Appropriate mood, cooperative General: Alert, Oriented X3, Cooperative, No acute distress Heart: Regular rate, Normal S1, Normal S2 Lungs: Clear Extremities: No clubbing, No cyanosis Skin: No rashes, No breakdown Labs LABS Laboratory Tests Test 06/15/18 12:05 06/15/18 19:30 06/16/18 01:30 06/16/18 07:45 Heparin Anti-Xa Act, Unfractionated 0.26 IU/mL (0.30-0.70) 0.28 IU/mL (0.30-0.70) 0.32 IU/mL (0.30-0.70) 0.29 IU/mL (0.30-0.70) White Blood Count 7.7 x10^3/uL (4.0-11.0) Red Blood Count 5.07 x10^6/uL (4.30-5.70) Hemoglobin 13.6 g/dL (13.0-17.5) Hematocrit 41.9 % (39.0-53.0) Mean Corpuscular Volume 83 fL (79-100) Mean Corpuscular Hemoglobin 27 pg (25-35) Mean Corpuscular Hemoglobin Concent 33 g/dL (31-37) Red Cell Distribution Width 15.3 % (11.5-14.5) Platelet Count 269 x10^3/uL (140-400) Comment Review of Relevant I have reviewed the following items constantino (where applicable) has been applied. Labs Laboratory Tests Test 06/14/18 08:35 06/14/18 20:45 06/15/18 04:00 06/15/18 12:05 Prothrombin Time 14.0 SEC (11.7-14.0) 14.0 SEC (11.7-14.0) Prothromb Time International Ratio 1.1 (0.8-1.1) 1.1 (0.8-1.1) Troponin I Quantitative < 0.017 ng/mL (0.000-0.055) Heparin Anti-Xa Act, Unfractionated 0.22 IU/mL (0.30-0.70) 0.12 IU/mL (0.30-0.70) 0.26 IU/mL (0.30-0.70) Test 06/15/18 19:30 06/16/18 01:30 06/16/18 07:45 Heparin Anti-Xa Act, Unfractionated 0.28 IU/mL (0.30-0.70) 0.32 IU/mL (0.30-0.70) 0.29 IU/mL (0.30-0.70) White Blood Count 7.7 x10^3/uL (4.0-11.0) Red Blood Count 5.07 x10^6/uL (4.30-5.70) Hemoglobin 13.6 g/dL (13.0-17.5) Hematocrit 41.9 % (39.0-53.0) Mean Corpuscular Volume 83 fL (79-100) Mean Corpuscular Hemoglobin 27 pg (25-35) Mean Corpuscular Hemoglobin Concent 33 g/dL (31-37) Red Cell Distribution Width 15.3 % (11.5-14.5) Platelet Count 269 x10^3/uL (140-400) Laboratory Tests Test 06/15/18 12:05 06/15/18 19:30 06/16/18 01:30 06/16/18 07:45 Heparin Anti-Xa Act, Unfractionated 0.26 IU/mL (0.30-0.70) 0.28 IU/mL (0.30-0.70) 0.32 IU/mL (0.30-0.70) 0.29 IU/mL (0.30-0.70) White Blood Count 7.7 x10^3/uL (4.0-11.0) Red Blood Count 5.07 x10^6/uL (4.30-5.70) Hemoglobin 13.6 g/dL (13.0-17.5) Hematocrit 41.9 % (39.0-53.0) Mean Corpuscular Volume 83 fL (79-100) Mean Corpuscular Hemoglobin 27 pg (25-35) Mean Corpuscular Hemoglobin Concent 33 g/dL (31-37) Red Cell Distribution Width 15.3 % (11.5-14.5) Platelet Count 269 x10^3/uL (140-400) Medications Current Medications Albuterol/ Ipratropium (Duoneb) 3 ml 1X ONCE NEB Last administered on at 23:36; Start 06/13/18 at 23:45; Stop 06/13/18 at 23:46; Status DC Sodium Chloride 1,000 ml @ 1,000 mls/hr 1X ONCE IV Last administered on at 23:55; Start 06/13/18 at 23:45; Stop 06/14/18 at 00:44; Status DC Iohexol (Omnipaque 350 Mg/ml) 100 ml 1X ONCE IV Last administered on 06/14/18at 01:11; Start 06/14/18 at 01:30; Stop 06/14/18 at 01:31; Status DC Info (CONTRAST GIVEN -- Rx MONITORING) 1 each PRN DAILY PRN MC SEE COMMENTS; Start 06/14/18 at 01:00; Stop 06/16/18 at 00:59; Status DC Enoxaparin Sodium (Lovenox 100mg Syringe) 200 mg 1X ONCE SQ Last administered on 06/14/18at 02:54; Start 06/14/18 at 02:30; Stop 06/14/18 at 02:31; Status DC Ondansetron HCl (Zofran) 4 mg PRN Q8HRS PRN IV NAUSEA/VOMITING 1ST CHOICE; Start 06/14/18 at 02:45; Stop 06/15/18 at 02:44; Status DC Fentanyl Citrate (Fentanyl 2ml Vial) 50 mcg PRN Q2HRS PRN IV SEVERE PAIN; Start 06/14/18 at 02:45 Enoxaparin Sodium (Lovenox Per Pharmacy Treatment Dosing) 1 each PRN DAILY PRN MC SEE COMMENTS; Start 06/14/18 at 10:15; Stop 06/14/18 at 10:49; Status DC Warfarin Sodium (Coumadin Per Pharmacy) 1 each PRN DAILY PRN MC SEE COMMENTS Last administered on 06/15/18at 15:34; Start 06/14/18 at 10:15 Heparin Sodium/ Dextrose 500 ml @ 0 mls/hr CONT PRN IV SEE I/O RECORD Last administered on 06/16/18at 03:37; Start 06/14/18 at 14:00 Heparin Sodium (Porcine) (Heparin Sodium) 6,550 unit PRN Q6HRS PRN IV FOR UFH LEVEL LESS THAN 0.2 Last administered on 06/15/18at 06:15; Start 06/14/18 at 14:00 Heparin Sodium (Porcine) (Heparin Sodium) 3,250 unit PRN Q6HRS PRN IV FOR UFH LEVEL 0.2 - 0.29 Last administered on 06/15/18 13:20; Start 06/14/18 at 14:00 Perflutren Protein Type A Microsphe (Optison) 0.66 mg PRN 1X PRN IV SEE COMMENTS Last administered on 06/14/18 12:53; Start 06/14/18 at 12:30; Stop at 12:29; Status DC Perflutren Protein Type A Microsphe (Optison) 0.66 mg STK-MED ONCE IV ; Start at 12:19; Stop 06/14/18 at 12:20; Status DC Info (Anti-Coagulation Monitoring By Pharmacy) 1 each PRN DAILY PRN MC SEE COMMENTS Last administered on 06/15/18at 15:33; Start 06/14/18 at 15:00 Warfarin Sodium (Coumadin) 10 mg 1X WARF ONCE PO Last administered on 16:58; Start 06/14/18 at 16:00; Stop 06/14/18 at 16:01; Status DC Guaifenesin (Robitussin Dm) 10 ml PRN Q6HRS PRN PO COUGH Last administered on 23:04; Start 06/14/18 at 23:00 Warfarin Sodium (Coumadin) 10 mg 1X WARF ONCE PO Last administered on 16:03; Start 06/15/18 at 16:00; Stop 06/15/18 at 16:01; Status DC Active Scripts Active Vitals/I & O Vital Sign - Last 24 Hours 06/15/18 06/15/18 06/15/18 06/15/18 11:00 15:00 19:00 20:00 Temp 97.5 98.2 98.8 97.5 98.2 98.8 Pulse 76 91 89 Resp 20 20 18 B/P (MAP) 127/74 (91) 137/85 (102) 150/86 (107) Pulse Ox 93 92 95 O2 Delivery Room Air Room Air Nasal Cannula Nasal Cannula O2 Flow Rate 2.0 2.0 06/15/18 06/16/18 06/16/18 22:49 02:55 07:15 Temp 98.2 98.1 97.5 98.2 98.1 97.5 Pulse 90 85 67 Resp 18 18 19 B/P (MAP) 138/91 (107) 129/69 (89) 127/70 (89) Pulse Ox 93 96 95 O2 Delivery Nasal Cannula Nasal Cannula Nasal Cannula O2 Flow Rate 2.0 2.0 Intake and Output 06/15/18 06/15/18 06/16/18 15:00 23:00 07:00 Intake Total 1075 ml 120 ml Output Total 550 ml Balance 525 ml 120 ml Images ECHO - Technically very difficult study. The left ventricle is normal size. The left ventricular systolic function is normal and the ejection fraction is within normal range. Left ventricular ejection fraction is estimated at 50-55%. The right ventricle is mildly dilated. The aortic valve is not well visualized. Doppler and Color Flow revealed mild mitral valve regurgitation. Doppler and color-flow analysis of the tricuspid valve -was performed but not clear. With contrast the PA pressure was estimated at 50 mmHg. AURA GALLO MD Jun 16, 2018 08:35
[2018-06-16 08:41] LABS: PROTHROMBIN TIME PATIENT 19.6 SEC (11.7-14.0)
[2018-06-16 11:00] VITALS: BP 147/81
--- NOTE | 2018-06-16 12:43 | NUR ---
Pharmacy Warfarin Dosing Note S:Pharmacy consulted to assist with anticoagulation therapy started 06/14/18 with target INR: 2 -3 O:SAFIA PHILLIPS is a 43 year old M with DVT/PE Bilateral pulmonary embolism LABS: Last INR: 1.7 Last HGB: 13.6 Last HCT: 41.9 Last PLT: 269 Last dose of 10 mg given on 06/15/18 at 1603 Previous Regimen: Vitamin K given: N Drug Interaction Changes: Same Interacting Drug Ongoing Drug Interactions: A:INR of 1.7 is below desired range. Target range for this patient is: 2 -3 P: Warfarin dose: 7.5 mg Today at 1600 Bridge Therapy: Heparin Therapeutic CONT Next INR due 06/17/18. Pharmacy anticoagulation service will continue to follow. DEANNA ERNST RPH, 06/16/18 [id number]
[2018-06-16 15:00] VITALS: BP 132/84
[2018-06-16] MEDS ORDERED: WARFARIN 7.5 MG TABLET. PO ONE (16:00)
[2018-06-16 19:00] VITALS: BP 142/80
[2018-06-16 23:00] VITALS: BP 148/82
[2018-06-17 03:35] VITALS: BP 129/70
[2018-06-17] MEDS: HEPARIN 25,000UTS/500ML PREMIX 500 ML IV PRN (04:10)
[2018-06-17 04:40] LABS: PROTHROMBIN TIME PATIENT 21.5 SEC (11.7-14.0)
[2018-06-17 07:00] VITALS: BP 122/59
--- NOTE | 2018-06-17 07:34 | PDOC ---
PROGRESS NOTES Chief Complaint Chief Complaint 1. Multiple bilateral pulmonary emboli. 2. Moderate clot burden. 3. Morbid obesity with BMI of 65 Plan: will get ECHO will start Heparin and Warfarin since patient's weight precludes other anticoagulants reassess in the am History of Present Illness History of Present Illness Admitted with shortness of breath and hypoxia, found with multiple PE with moderate clot burden. This is his second episode of PE. 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 Off oxygen today, able to ambulate with less shortness of breath. INR 1.7 after 10mg coumadin 4/4 at night. Echo with some increased right sided pressure and LV dilation. He wishes to leave for a [employer] convention in [place], [place], willing to stay until INR therapeutic. Plan: INR 1.9 for d/c on 10mg/7.5mg alternating regimen, most likely He will probably need lifelong anticoagulation Morbid obesity - this precludes NOAC use, needs warfarin, with his moderate clot burden it is safest to d/c on alternating regimen as above Pulmonary HTN - noted on ECHO, he would eventually benefit from RHC after he has been therapeutically anticoagulated Vitals Vitals Vital Signs Date Time Temp Pulse Resp B/P (MAP) Pulse Ox O2 Delivery O2 Flow Rate FiO2 06/17/18 03:35 98.1 89 20 129/70 (89) 90 Room Air 98.1 06/16/18 07:15 Physical Exam Physical Exam Gen.: morbid obese in no apparent distress Head: Normal shape atraumatic Eyes: Pupils equal reactive to light and accommodation, normal conjunctivae and lids Ears: Normal shape Nose: Normal shape no trauma Mouth: No exudates of the back of throat no thrush no lesions Neck: Supple no JVD no carotid bruit or lymphadenopathy no thyromegaly Chest: Lungs clear to auscultation with good inspiratory effort no crackles rales or rhonchi Cardiovascular: S1-S2 regular rhythm no murmurs gallops or rubs Abdomen: Bowel sounds present soft nontender no hepatosplenomegaly appreciated sign Extremities: No clubbing no cyanosis no edema peripheral pulses palpated bilaterally Neurological: Alert awake oriented in person time place and situation, cranial nerves II through XII intact, no motor or sensory deficits appreciated Psych: Appropriate mood, cooperative General: Alert, Oriented X3, Cooperative, No acute distress Heart: Regular rate, Normal S1, Normal S2 Lungs: Clear Extremities: No clubbing, No cyanosis Skin: No rashes, No breakdown Labs LABS Laboratory Tests Test 06/16/18 07:45 06/16/18 15:02 06/16/18 21:00 06/17/18 03:20 White Blood Count 7.7 x10^3/uL (4.0-11.0) Red Blood Count 5.07 x10^6/uL (4.30-5.70) Hemoglobin 13.6 g/dL (13.0-17.5) Hematocrit 41.9 % (39.0-53.0) Mean Corpuscular Volume 83 fL (79-100) Mean Corpuscular Hemoglobin 27 pg (25-35) Mean Corpuscular Hemoglobin Concent 33 g/dL (31-37) Red Cell Distribution Width 15.3 % (11.5-14.5) Platelet Count 269 x10^3/uL (140-400) Prothrombin Time 19.6 SEC (11.7-14.0) 21.5 SEC (11.7-14.0) Prothromb Time International Ratio 1.7 (0.8-1.1) 1.9 (0.8-1.1) Heparin Anti-Xa Act, Unfractionated 0.29 IU/mL (0.30-0.70) 0.42 IU/mL (0.30-0.70) 0.39 IU/mL (0.30-0.70) Comment Review of Relevant I have reviewed the following items constantino (where applicable) has been applied. Labs Laboratory Tests Test 06/15/18 12:05 06/15/18 19:30 06/16/18 01:30 06/16/18 07:45 Heparin Anti-Xa Act, Unfractionated 0.26 IU/mL (0.30-0.70) 0.28 IU/mL (0.30-0.70) 0.32 IU/mL (0.30-0.70) 0.29 IU/mL (0.30-0.70) White Blood Count 7.7 x10^3/uL (4.0-11.0) Red Blood Count 5.07 x10^6/uL (4.30-5.70) Hemoglobin 13.6 g/dL (13.0-17.5) Hematocrit 41.9 % (39.0-53.0) Mean Corpuscular Volume 83 fL (79-100) Mean Corpuscular Hemoglobin 27 pg (25-35) Mean Corpuscular Hemoglobin Concent 33 g/dL (31-37) Red Cell Distribution Width 15.3 % (11.5-14.5) Platelet Count 269 x10^3/uL (140-400) Prothrombin Time 19.6 SEC (11.7-14.0) Prothromb Time International Ratio 1.7 (0.8-1.1) Test 06/16/18 15:02 06/16/18 21:00 06/17/18 03:20 Heparin Anti-Xa Act, Unfractionated 0.42 IU/mL (0.30-0.70) 0.39 IU/mL (0.30-0.70) Prothrombin Time 21.5 SEC (11.7-14.0) Prothromb Time International Ratio 1.9 (0.8-1.1) Laboratory Tests Test 06/16/18 07:45 06/16/18 15:02 06/16/18 21:00 06/17/18 03:20 White Blood Count 7.7 x10^3/uL (4.0-11.0) Red Blood Count 5.07 x10^6/uL (4.30-5.70) Hemoglobin 13.6 g/dL (13.0-17.5) Hematocrit 41.9 % (39.0-53.0) Mean Corpuscular Volume 83 fL (79-100) Mean Corpuscular Hemoglobin 27 pg (25-35) Mean Corpuscular Hemoglobin Concent 33 g/dL (31-37) Red Cell Distribution Width 15.3 % (11.5-14.5) Platelet Count 269 x10^3/uL (140-400) Prothrombin Time 19.6 SEC (11.7-14.0) 21.5 SEC (11.7-14.0) Prothromb Time International Ratio 1.7 (0.8-1.1) 1.9 (0.8-1.1) Heparin Anti-Xa Act, Unfractionated 0.29 IU/mL (0.30-0.70) 0.42 IU/mL (0.30-0.70) 0.39 IU/mL (0.30-0.70) Medications Current Medications Albuterol/ Ipratropium (Duoneb) 3 ml 1X ONCE NEB Last administered on at 23:36; Start 06/13/18 at 23:45; Stop 06/13/18 at 23:46; Status DC Sodium Chloride 1,000 ml @ 1,000 mls/hr 1X ONCE IV Last administered on at 23:55; Start 06/13/18 at 23:45; Stop 06/14/18 at 00:44; Status DC Iohexol (Omnipaque 350 Mg/ml) 100 ml 1X ONCE IV Last administered on 06/14/18at 01:11; Start 06/14/18 at 01:30; Stop 06/14/18 at 01:31; Status DC Info (CONTRAST GIVEN -- Rx MONITORING) 1 each PRN DAILY PRN MC SEE COMMENTS; Start 06/14/18 at 01:00; Stop 06/16/18 at 00:59; Status DC Enoxaparin Sodium (Lovenox 100mg Syringe) 200 mg 1X ONCE SQ Last administered on 06/14/18at 02:54; Start 06/14/18 at 02:30; Stop 06/14/18 at 02:31; Status DC Ondansetron HCl (Zofran) 4 mg PRN Q8HRS PRN IV NAUSEA/VOMITING 1ST CHOICE; Start 06/14/18 at 02:45; Stop 06/15/18 at 02:44; Status DC Fentanyl Citrate (Fentanyl 2ml Vial) 50 mcg PRN Q2HRS PRN IV SEVERE PAIN; Start 06/14/18 at 02:45 Enoxaparin Sodium (Lovenox Per Pharmacy Treatment Dosing) 1 each PRN DAILY PRN MC SEE COMMENTS; Start 06/14/18 at 10:15; Stop 06/14/18 at 10:49; Status DC Warfarin Sodium (Coumadin Per Pharmacy) 1 each PRN DAILY PRN MC SEE COMMENTS Last administered on 06/16/18at 12:42; Start 06/14/18 at 10:15 Heparin Sodium/ Dextrose 500 ml @ 0 mls/hr CONT PRN IV SEE I/O RECORD Last administered on 06/17/18at 04:10; Start 06/14/18 at 14:00 Heparin Sodium (Porcine) (Heparin Sodium) 6,550 unit PRN Q6HRS PRN IV FOR UFH LEVEL LESS THAN 0.2 Last administered on 06/15/18 06:15; Start 06/14/18 at 14:00 Heparin Sodium (Porcine) (Heparin Sodium) 3,250 unit PRN Q6HRS PRN IV FOR UFH LEVEL 0.2 - 0.29 Last administered on 06/15/18 13:20; Start 06/14/18 at 14:00 Perflutren Protein Type A Microsphe (Optison) 0.66 mg PRN 1X PRN IV SEE COMMENTS Last administered on 06/14/18 12:53; Start 06/14/18 at 12:30; Stop at 12:29; Status DC Perflutren Protein Type A Microsphe (Optison) 0.66 mg STK-MED ONCE IV ; Start at 12:19; Stop 06/14/18 at 12:20; Status DC Info (Anti-Coagulation Monitoring By Pharmacy) 1 each PRN DAILY PRN MC SEE COMMENTS Last administered on 06/15/18 15:33; Start 06/14/18 at 15:00 Warfarin Sodium (Coumadin) 10 mg 1X WARF ONCE PO Last administered on 16:58; Start 06/14/18 at 16:00; Stop 06/14/18 at 16:01; Status DC Guaifenesin (Robitussin Dm) 10 ml PRN Q6HRS PRN PO COUGH Last administered on 23:04; Start 06/14/18 at 23:00 Warfarin Sodium (Coumadin) 10 mg 1X WARF ONCE PO Last administered on 16:03; Start 06/15/18 at 16:00; Stop 06/15/18 at 16:01; Status DC Warfarin Sodium (Coumadin) 7.5 mg 1X WARF ONCE PO Last administered on 18:21; Start 06/16/18 at 16:00; Stop 06/16/18 at 16:01; Status DC Active Scripts Active Vitals/I & O Vital Sign - Last 24 Hours 06/16/18 06/16/18 06/16/18 06/16/18 08:00 11:00 15:00 19:00 Temp 97.7 98.0 98.1 97.7 98.0 98.1 Pulse 79 83 79 Resp 20 20 20 B/P (MAP) 147/81 (103) 132/84 (100) 142/80 (100) Pulse Ox 94 93 93 O2 Delivery Room Air Room Air Room Air Room Air 06/16/18 06/16/18 06/17/18 20:22 23:00 03:35 Temp 98.5 98.1 98.5 98.1 Pulse 83 89 Resp 20 20 B/P (MAP) 148/82 (104) 129/70 (89) Pulse Ox 93 90 O2 Delivery Room Air Room Air Room Air Intake and Output 06/16/18 06/16/18 06/17/18 15:00 23:00 07:00 Intake Total 1040 ml 250 ml Output Total 300 ml Balance 1040 ml -50 ml AURA GALLO MD Jun 17, 2018 07:34
--- NOTE | 2018-06-17 07:38 | PDOC3 ---
Discharge Summary Visit Information Date of Admission: Jun 14, 2018 Date of Discharge: Jun 17, 2018 Admitting Diagnosis: Shortness of breath with hypoxia Final Diagnosis Acute bilateral pulmonary emboli Brief Hospital Course Allergies Allergies Coded Allergies Type Severity Reaction Last Updated Verified phenobarbital Allergy Intermediate SEIZURE 02/19/16 Yes Vital Signs Vital Signs Date Time Temp Pulse Resp B/P (MAP) Pulse Ox O2 Delivery O2 Flow Rate FiO2 06/17/18 03:35 98.1 89 20 129/70 (89) 90 Room Air 98.1 06/16/18 07:15 Lab Results Laboratory Tests Test 06/15/18 12:05 06/15/18 19:30 06/16/18 01:30 06/16/18 07:45 Heparin Anti-Xa Act, Unfractionated 0.26 IU/mL (0.30-0.70) 0.28 IU/mL (0.30-0.70) 0.32 IU/mL (0.30-0.70) 0.29 IU/mL (0.30-0.70) White Blood Count 7.7 x10^3/uL (4.0-11.0) Red Blood Count 5.07 x10^6/uL (4.30-5.70) Hemoglobin 13.6 g/dL (13.0-17.5) Hematocrit 41.9 % (39.0-53.0) Mean Corpuscular Volume 83 fL (79-100) Mean Corpuscular Hemoglobin 27 pg (25-35) Mean Corpuscular Hemoglobin Concent 33 g/dL (31-37) Red Cell Distribution Width 15.3 % (11.5-14.5) Platelet Count 269 x10^3/uL (140-400) Prothrombin Time 19.6 SEC (11.7-14.0) Prothromb Time International Ratio 1.7 (0.8-1.1) Test 06/16/18 15:02 06/16/18 21:00 06/17/18 03:20 Heparin Anti-Xa Act, Unfractionated 0.42 IU/mL (0.30-0.70) 0.39 IU/mL (0.30-0.70) Prothrombin Time 21.5 SEC (11.7-14.0) Prothromb Time International Ratio 1.9 (0.8-1.1) Laboratory Tests Test 06/16/18 07:45 06/16/18 15:02 06/16/18 21:00 06/17/18 03:20 White Blood Count 7.7 x10^3/uL (4.0-11.0) Red Blood Count 5.07 x10^6/uL (4.30-5.70) Hemoglobin 13.6 g/dL (13.0-17.5) Hematocrit 41.9 % (39.0-53.0) Mean Corpuscular Volume 83 fL (79-100) Mean Corpuscular Hemoglobin 27 pg (25-35) Mean Corpuscular Hemoglobin Concent 33 g/dL (31-37) Red Cell Distribution Width 15.3 % (11.5-14.5) Platelet Count 269 x10^3/uL (140-400) Prothrombin Time 19.6 SEC (11.7-14.0) 21.5 SEC (11.7-14.0) Prothromb Time International Ratio 1.7 (0.8-1.1) 1.9 (0.8-1.1) Heparin Anti-Xa Act, Unfractionated 0.29 IU/mL (0.30-0.70) 0.42 IU/mL (0.30-0.70) 0.39 IU/mL (0.30-0.70) Brief Hospital Course Mr Diallo is a 43yo male admitted with shortness of breath and hypoxia, found with multiple PE with moderate clot burden. This is his second episode of PE. 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 Off oxygen today, able to ambulate with less shortness of breath. INR 1.7 after 10mg coumadin 4/4 at night. Echo with some increased right sided pressure and LV dilation. He wishes to leave for a tattoo convention in [place], [place], willing to stay until INR therapeutic. CTPA - There is filling defects within the distal right main pulmonary artery is interdigitating into all of the segmental and multiple subsegmental pulmonary arteries on the right. There is thrombus and multiple segmental and subsegmental pulmonary arteries on the left. The more peripheral subsegmental pulmonary arteries are not well opacified limiting our sensitivity for small peripheral pulmonary emboli. The lungs and pleural margins are clear. There is no mediastinal or hilar lymphadenopathy. The thoracic aorta appears normal. Impression: 1. Multiple bilateral pulmonary emboli. 2. Moderate clot burden. ECHOCARDIOGRAM - Technically very difficult study. The left ventricle is normal size. The left ventricular systolic function is normal and the ejection fraction is within normal range. Left ventricular ejection fraction is estimated at 50-55%. The right ventricle is mildly dilated. The aortic valve is not well visualized. Doppler and Color Flow revealed mild mitral valve regurgitation. Doppler and color-flow analysis of the tricuspid valve -was performed but not clear. With contrast the PA pressure was estimated at 50 mmHg. Plan: D/c today with INR 1.9 for d/c on 10mg/7.5mg alternating regimen He will probably need lifelong anticoagulation Morbid obesity - this precludes NOAC use, needs warfarin, with his moderate clot burden Pulmonary HTN - noted on ECHO, he would eventually benefit from RHC after he has been therapeutically anticoagulated 1. Multiple bilateral pulmonary emboli. 2. Moderate clot burden. 3. Morbid obesity with BMI of 65 Discharge Information Condition at Discharge: Improved Follow Up: Weeks Disposition/Orders: D/C to Home Scheduled Warfarin Sodium (Warfarin Sodium) 7.5 Mg Tablet, 7.5 MG PO DAILY for Pulmonary Emboli for 30 Days, #10 Ref 2 MWF Dosing INR to adjust Prescribed by: AURA GALLO MD on 06/17/18 0943 Scheduled PRN Warfarin Sodium (Coumadin) 10 Mg Tablet, 1 EACH MC PRN DAILY PRN for Pulmonary Embolus for 30 Days, #20 Ref 2 [facility] dosing INR to help dosing Prescribed by: AURA GALLO MD on 06/17/18 0943 AURA GALLO MD Jun 17, 2018 07:37
[2018-06-17] MEDS ORDERED: WARF10TA45 MC (09:43)
[2018-06-17] MEDS ORDERED: WARF7.5T45 PO (09:43)
[2018-06-17 11:00] VITALS: BP 129/73
--- NOTE | 2018-06-17 15:16 | NUR ---
Discharge Note: SAFIA PHILLIPS [place] Discharge instructions and discharge home medications reviewed with Patient and a copy given. All questions have been answered and understanding verbalized. The following instructions and handouts were given: medication education, PE education, follow up info, when to seek medical attention. Discontinued lines and drains: peripheral IV dc'd, cath intact. Patient discharged to home with . instructed to establish PCP for INR lab follow up as he is now on warfarin.
== END 2018-06-17 12:00 | disposition home or self-care (01) | DRG 176 ==
LOC: ER 22:31 → 2 NORTH 06-14 02:30 → 5 NORTH 06-15 18:20
PROVIDERS: ADMIT Internal Medicine; ATTEND Internal Medicine
DX: I26.99 Other pulmonary embolism without acute cor pulmonale (principal); Z68.44 Body mass index [BMI] 60.0-69.9, adult; E66.01 Morbid (severe) obesity due to excess calories; E78.00 Pure hypercholesterolemia, unspecified; I51.7 Cardiomegaly; I27.20 Pulmonary hypertension, unspecified; G89.29 Other chronic pain; M19.90 Unspecified osteoarthritis, unspecified site; R09.02 Hypoxemia; Z88.8 Allergy status to other drugs, medicaments and biological substances; Z86.711 Personal history of pulmonary embolism; Z87.891 Personal history of nicotine dependence; Z90.49 Acquired absence of other specified parts of digestive tract; Z79.899 Other long term (current) drug therapy
CPT/HCPCS: 36415; 71275; 80053; 82553; 83735; 83880; 84484; 85025; 85027; 85379; 85520; 85610; 87804; 93005; 94640; 96360; 96372; C8929; J1644; J1650; J7030; J7620; Q9956; Q9967; 99285-25

== ENCOUNTER 2018-11-16 17:56 | Emergency (ER) | payer SELFPAY ==
[~2018-11-16] VITALS: Ht 182.9 cm; Wt 217.7 kg
[~2018-11-16 17:56] MED LIST changes: +LIDO700A21 TD; -LIDO700A39 TD; +WARF10TA45 MC; +WARF7.5T45 PO
[2018-11-16 18:23] VITALS: BP 160/76
[2018-11-16] MEDS ORDERED: NAPROXEN 500 MG TABLET PO STA (18:25)
[2018-11-16] MEDS ORDERED: HYDROcodone/APAP 5/325MG 1 TAB TABLET PO ONE (18:30)
[2018-11-16] MEDS ORDERED: CYCLOBENZAPRINE 10 MG TABLET. PO ONE (18:30)
[2018-11-16] MEDS ORDERED: METH4TAB2 PO (18:32)
[2018-11-16] MEDS ORDERED: CYCL10TA2 PO (18:32)
--- NOTE | 2018-11-16 18:33 | PHYS DOC ---
Past Medical History Past Medical History: Arthritis, High Cholesterol, Seizure, Other Additional Past Medical Histor: BLOOD CLOT,Carpal Tunnel,CHRONIC BACK PAIN,PE'S Past Surgical History: Cholecystectomy, Other Additional Past Surgical Histo: MOUTH SURGERY,HERNIA REPAIR Alcohol Use: None Drug Use: None Adult General Chief Complaint Chief Complaint: HIP PAIN HPI HPI Patient is a 43 year old male with history of seizures, high cholesterol, morbidly obese, who presents to the ED today complaining of moderate pain in the right groin radiating to the right lower extremity that began a month ago while moving furniture. Patient denies any injuries. He states he heard a pop sound from the groin region a month ago at the onset of symptoms, but has been able to walk with no difficulties. Denies anything specifically relieving his pain. 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 Review of Systems Review of Systems Constitutional: Denies fever or chills [] GI: Denies abdominal pain, nausea, vomiting, bloody stools or diarrhea [] : Denies dysuria or hematuria [] Musculoskeletal: Reports right groin pain Integument: Denies rash or skin lesions [] Neurologic: Denies headache, focal weakness or sensory changes [] All other systems were reviewed and found to be within normal limits, except as documented in this note. Current Medications Current Medications Current Medications Medications (Trade) Dose Ordered Sig/Brii Start Time Stop Time Status Last Admin Dose Admin Acetaminophen/ Hydrocodone Bitart (Lortab 5/325) 2 tab 1X ONCE 11/16/18 18:30 11/16/18 18:31 DC 11/16/18 18:35 2 TAB Cyclobenzaprine HCl (Flexeril) 10 mg 1X ONCE 11/16/18 18:30 11/16/18 18:31 DC 11/16/18 18:35 10 MG Naproxen (Naprosyn) 500 mg 1X STAT 11/16/18 18:25 11/16/18 18:29 DC 11/16/18 18:35 500 MG Allergies Allergies Allergies Coded Allergies Type Severity Reaction Last Updated Verified phenobarbital Allergy Intermediate SEIZURE 02/19/16 Yes Physical Exam Physical Exam Constitutional: Morbidly obese patient, well nourished, no acute distress, non- toxic appearance. [] Skin: Warm, dry, no erythema, no rash. [] Back: No tenderness, no CVA tenderness. [] Extremities: No tenderness, no cyanosis, no clubbing, ROM intact, no edema. [] Neurologic: Alert and oriented X 3, normal motor function, normal sensory function, no focal deficits noted. [] Psychologic: Affect normal, judgement normal, mood normal. [] Current Patient Data Vital Signs Vital Signs Date Time Temp Pulse Resp B/P (MAP) Pulse Ox O2 Delivery O2 Flow Rate FiO2 11/16/18 18:23 98.2 85 22 160/76 (104) 97 Room Air 98.2 EKG EKG [] Radiology/Procedures Radiology/Procedures [] Course & Med Decision Making Course & Med Decision Making Pertinent Labs and Imaging studies reviewed. (See chart for details) This is a 43-year-old male patient presenting to the ED today with complaints of right groin pain that began a month ago while moving furniture. No actual injury during the moving patient is morbidly obese. Be discharged to home to follow up with his own PCP. Given prescription for diclofenac, cyclobenzaprine and Medrol Dosepak. Dragon Disclaimer Dragon Disclaimer This electronic medical record was generated, in whole or in part, using a voice recognition dictation system. Departure Departure Impression: Primary Impression: Strain of groin Disposition: 01 HOME, SELF-CARE Condition: STABLE Referrals: NO PCP (PCP) JOSE ANTONIO FISHER II, MD Follow-up in one week Patient Instructions: Groin Strain Additional Instructions: You were evaluated in the emergency room for right groin pain, we highly recommend you follow-up with your own doctor in the next 1-2 weeks. Use the prescribed medications as ordered. Scripts Hydrocodone/Apap 5-325 (NORCO 5-325 TABLET) 1 Each Tablet 1 TAB PO Q6HRS, #8 TAB Prov: MUTUNGA,CALVIN [employer] 11/16/18 Cyclobenzaprine Hcl (CYCLOBENZAPRINE HCL) 10 Mg Tablet 1 TAB PO TID, #30 TAB Prov: MUTUNGA,CALVIN [employer] 11/16/18 Methylprednisolone (MEDROL) 4 Mg Tab.ds.pk 1 PKG PO UD, #1 PKG Prov: MUTUNGA,CALVIN [employer] 11/16/18 Problem Qualifiers Primary Impression: Strain of groin Encounter type: initial encounter Laterality: right Qualified Codes: S76.211A - Strain of adductor muscle, fascia and tendon of right thigh, initial encounter CALVIN KAUR [employer] Nov 16, 2018 18:33
[2018-11-16] MEDS ORDERED: HYDR-3164 PO (18:45)
== END 2018-11-16 18:53 | disposition home or self-care (01) ==
LOC: ER 17:56
DX: S39.011A Strain of muscle, fascia and tendon of abdomen, initial encounter (principal); M19.90 Unspecified osteoarthritis, unspecified site; E78.00 Pure hypercholesterolemia, unspecified; E66.01 Morbid (severe) obesity due to excess calories; Z68.44 Body mass index [BMI] 60.0-69.9, adult; Z90.49 Acquired absence of other specified parts of digestive tract; Z88.8 Allergy status to other drugs, medicaments and biological substances; X50.9XXA Other and unspecified overexertion or strenuous movements or postures, initial encounter; Y93.89 Activity, other specified; Y92.89 Other specified places as the place of occurrence of the external cause; Y99.8 Other external cause status
CPT/HCPCS: 99284